=== PATIENT | male | born 1960 | race Caucasian/White ===

== ENCOUNTER 2018-10-18 11:44 | Emergency (ER) | payer SELFPAY ==
[2018-10-18 12:21] VITALS: BP 156/91; PULSE 110; TEMP 98.9; BMI 25.8
--- NOTE | 2018-10-18 13:23 | PDOC ---
History of Present Illness - General Chief Complaint: Alcohol intoxication Stated Complaint: LT ANKLE SWOLLEN - History of Present Illness Initial Comments: The pt is a 58M w/ a history of HTN, tremors at baseline, TBI (residual LUE weakness), BLE neuropathy, and EtOH abuse who presents for evaluation of 2-3 of L heel pain. The patient reports that he has been walking more and notes that he has had increased pain in his heels (L > R). He reports that he over feels at his baseline but is concerned about this pain. He has been walking more recently to get to appointments because he does not have a car and cannot always obtain transportation. He presents with his daughter's boyfriend who states they are his pain mode of transportation and he cannot get funded transportation unless they have a form filled out and he does not have a PCP to fill them out. Denies hx of seizure Denies fevers/chills, GONZALEZ, vision changes, chest pain, abdominal pain, N/V/C/D, or acute changes in sensation or strength Meds: ASA, Carvedilol PSH: Heart cath w/o sent placement Allergies: Denies SH: +3-4 cig/day, +3-4 beers daily, denies other drug use PCP: N/A 10/18/18 13:40 Past History - Past Medical History Allergies/Adverse Reactions: Allergies Allergy/AdvReac Type Severity Reaction Status Date / Time No Known Allergies Allergy Verified 10/18/18 12:15 - Suicide/Smoking/Psychosocial Hx Smoking History: Current every day smoker Number of Cigarettes Smoked Daily: 10 Information on smoking cessation initiated: No Hx Alcohol Use: Yes (3 bears a day as per pt) Drug/Substance Use Hx: No Review of Systems - Review of Systems Able to Perform ROS?: Yes Comments:: GENERAL/CONSTITUTIONAL: No fever or chills HEAD, EYES, EARS, NOSE AND THROAT: No change in vision. No ear pain or discharge. No sore throat CARDIOVASCULAR: No chest pain or shortness of breath RESPIRATORY: Denies cough, hemoptysis GASTROINTESTINAL: No nausea, vomiting, diarrhea or constipation GENITOURINARY: No dysuria, frequency, or change in urination MUSCULOSKELETAL: per HPI SKIN: per HPI NEUROLOGIC: No headache, vertigo, loss of consciousness, or change in strength/ sensation ENDOCRINE: No increased thirst. No abnormal weight change HEMATOLOGIC/LYMPHATIC: No anemia, easy bleeding, or history of blood clots ALLERGIC/IMMUNOLOGIC: No hives or skin allergy 10/18/18 13:23 *Physical Exam - Vital Signs Last Vital Signs Temp Pulse Resp BP Pulse Ox 98.9 F 110 H 20 156/91 100 10/18/18 12:17 10/18/18 12:17 10/18/18 12:17 10/18/18 12:17 10/18/18 12:17 - Physical Exam Comments: GENERAL: Awake, alert, and fully oriented, in no acute distress HEAD: No signs of trauma, normocephalic, atraumatic EYES: PERRLA, EOMI, sclera anicteric, conjunctiva clear ENT: Hearing grossly normal, nares patent, oropharynx clear without exudates. Moist mucosa LUNGS: No distress, speaks full sentences, clear to auscultation bilaterally HEART: Regular rate and rhythm, normal S1 and S2, no murmurs appreciated, peripheral pulses normal and equal bilaterally. ABDOMEN: Soft, nontender, normoactive bowel sounds. No guarding, no rebound EXTREMITIES : BLE posterior blisters w/o surrounding erythema or purulence. No peripheral edema NEUROLOGICAL: BUE tremulousness worse with extension of UE and worse w/ wrist extension; Cranial nerves II through XII grossly intact. Normal speech, no focal sensorimotor deficits SKIN: BLE posterior blisters w/o surrounding erythema or purulence 10/18/18 13:23 Moderate Sedation - Procedure Monitoring Vital Signs: Procedure Monitoring Vital Signs Temperature 98.9 F 10/18/18 12:17 Pulse Rate 110 H 10/18/18 12:17 Respiratory Rate 20 10/18/18 12:17 Blood Pressure 156/91 10/18/18 12:17 O2 Sat by Pulse Oximetry (%) 100 10/18/18 12:17 ED Treatment Course - LABORATORY CBC & Chemistry Diagram: 10/18/18 14:16 10/18/18 14:16 Medical Decision Making - Medical Decision Making The pt is a 58M w/ a history of HTN, baseline tremor, EtOH abuse, and TBI (w/ LUE weakness) who presents for evaluation of new onset L heel pain and blister. Patient also requesting for paperwork to be filled out regarding medical need for transportation. ED Course CMP, CBC 10/18/18 14:08 Patient does not wish to detox at this time. Patient counseled to not quit EtOH abruptly given risk of withdrawal symptoms/DTs Librium 25mg PO once given in ED for bridge, CIWA 6 w/ mild tachycardia Appointment made for follow up at [facility] to establish primary care and to have his documentation adequately filled. Follow up given for Detox as well 10/18/18 14:42 LFTs only mildly elevated, no jaundice, no icterus No INDU 10/18/18 15:02 Patient given copy of chemistries Plan for D/C w/ PCP f/u Discharge instructions and return precautions given Patient in agreement and verbalized understanding Dispo: home *DC/Admit/Observation/Transfer Diagnosis at time of Disposition: ETOH abuse Blister of left heel Qualifiers: Encounter type: initial encounter Qualified Code(s): S90.822A - Blister ( nonthermal), left foot, initial encounter Hypertension Qualifiers: Hypertension type: unspecified Qualified Code(s): I10 - Essential (primary) hypertension - Discharge Dispostion Disposition: HOME Condition at time of disposition: Stable Decision to Admit order: No - Referrals Referrals: [facility] [Provider Group] Jeremy Clemons MD [Staff Physician] - - Patient Instructions Printed Discharge Instructions: DI for Alcohol Abuse Additional Instructions: You were seen in the Emergency Department for evaluation of left heel blister. You form needs to be filled out by a primary care physician. Additionally, you were given Librium to prevent withdraw while in the Emergency Department. Do NOT quit alcohol abruptly given history of use. It can be dangerous and lead to seizures or if you quit suddenly. If you wish to quit, please seek detox. Return to the Emergency Department if you develop fevers/chills, chest pain, trouble breathing, confusion, anxiousness, inability to walk, nausea/vomiting, or any new/concerning symptoms. Usted fue visto en el Departamento de Emergencias para la evaluacin de la ampolla del taln yeimi. Ulloa formulario debe ser completado por un mdico de atencin primaria. Adems, recibi Librium para evitar retirarse mientras se encontraba en el Departamento de Emergencias. NO deje el alcohol abruptamente dado el historial de uso. Puede ser peligroso y provocar ataques o la muerte si lauren de fumar repentinamente. Si desea dejar de fumar, por favor busque desintoxicacin. Regrese al Departamento de Emergencias si presenta fiebre / escalofros, dolor en el pecho, dificultad para respirar, confusin, ansiedad, incapacidad para caminar, nuseas / vmitos, o cualquier sntoma nuevo o relacionado. Print Language: DIVEHI - Post Discharge Activity
--- NOTE | 2018-10-18 14:39 | PDOC ---
Attending Attestation - Resident Resident Name: Brad Rahman - ED Attending Attestation I have performed the following: I have examined & evaluated the patient, The case was reviewed & discussed with the resident, I agree w/resident's findings & plan, Exceptions are as noted - Physicial Exam PE: 10/18/18 15:02 Patient is awake and alert, tremulous, well-nourished Normocephalic and atraumatic PERRLA, EOMI, + conjunctival injection cta rrr tremulous + Left heel blister; no evidence of cellulitis - Medical Decision Making 10/18/18 15:03 58-year-old male with history of hypertension and EtOH abuse presents with a left heel Lalitha due to increased ambulation. Patient requests the paperwork be filled out so that he could obtain publicly funded transportation. Patient also presents with mild signs and symptoms of all: Withdrawal. C was score is noted to be 6. Patient does not wish detox. Last: Beverage was on the day of arrival. We'll administer by mouth Librium and will discharge with instructions to follow -up with detox if the patient wishes to do so. <Abner Mohamud - Last Filed: 10/18/18 15:02> - HPI HPI: 10/18/18 15:13 The patient is a 58 year old male with a significant past medical history of HTN , tremors at baseline, TBI (residual LUE weakness), BLE neuropathy, and EtOH abuse who presents for evaluation of left heel pain. The patient reports that he has been walking more and notes that he has had increased pain in his heels ( L > R). He denies any other complaints. Denies hx of seizure. Denies fevers/chills, GONZALEZ, vision changes, chest pain, abdominal pain, N/V/C/D, or acute changes in sensation or strength <Celeste Arevalo - Last Filed: 10/18/18 15:15> Attestations - Attestations 10/18/18 15:15 Documentation prepared by Celeste Arevalo, acting as medical parasitologist for Abner Mohamud MD <Celeste Arevalo - Last Filed: 10/18/18 15:15>
[2018-10-18] MEDS ORDERED: chlordiazePOXIDE HCL 25 MG CAPSULE PO ONE (14:42)
[2018-10-18 14:51] LABS: BASO % 0.7 % (0-2.0); EOS % 0.4 % (0-4.5); HEMATOCRIT 42.2 % (35.4-49); HEMOGLOBIN 14.9 GM/dL (11.7-16.9); LYMPH % 17.6 % (8-40); MCH 35.6 pg (25.7-33.7); MCHC 35.3 g/dl (32.0-35.9); MEAN CELL VOLUME 100.9 fl (80-96); MONO % 11.8 % (3.8-10.2); NEUT % 69.5 % (42.8-82.8); PLATELET COUNT 148 K/MM3 (134-434); RBC 4.18 M/mm3 (4.00-5.60); RDW 15.7 % (11.9-15.9); WHITE BLOOD COUNT 6.1 K/mm3 (4.0-10.0)
[2018-10-18 14:53] LABS: ALK PHOS 109 U/L (45-117); ANION GAP 6 MMOL/L (8-16); BLOOD UREA NITROGEN 11 mg/dL (7-18); CALCIUM 9.3 mg/dL (8.5-10.1); CHLORIDE 105 mmol/L (98-107); CO2 27 mmol/L (21-32); GLUCOSE,RANDOM 96 mg/dL (74-106); POTASSIUM 4.9 mmol/L (3.5-5.1); SGOT/AST 69 U/L (15-37); SGPT/ALT 70 U/L (13-61); SODIUM 138 mmol/L (136-145); TOT PROT 8.1 g/dl (6.4-8.2)
[2018-10-18] MEDS ORDERED: chlordiazePOXIDE HCL 25 MG CAPSULE ONE (14:59)
== END 2018-10-18 15:10 | disposition home or self-care (01) ==
LOC: JER 11:44
DX: S90.822A Blister (nonthermal), left foot, initial encounter (principal); Y93.01 Activity, walking, marching and hiking; Y93.89 Activity, other specified; Y92.89 Other specified places as the place of occurrence of the external cause; Y99.8 Other external cause status; I10 Essential (primary) hypertension; Z98.61 Coronary angioplasty status; F10.10 Alcohol abuse, uncomplicated; G25.2 Other specified forms of tremor; Z87.820 Personal history of traumatic brain injury; F17.210 Nicotine dependence, cigarettes, uncomplicated
CPT/HCPCS: 36415; 80053; 85025; 99281-25